=== PATIENT | male | born 1980 | race Caucasian/White ===

== ENCOUNTER → 2017-12-04 | Outpatient (REF) | payer MEDICARE, OTHER ==
[2017-12-04 14:10] LABS: APPEARANCE, URINE CLEAR (CLEAR); BACTERIA, URINE AUTO NEGATIVE (NEGATIVE); BILIRUBIN, URINE AUTO NEGATIVE (NEGATIVE); BLOOD, URINE BLOOD NEGATIVE (NEGATIVE); COLOR, URINE STRAW (YELLOW); GLUCOSE, URINE (UA) AUTO NEGATIVE (NEGATIVE); KETONE, URINE AUTO NEGATIVE (NEGATIVE); LEUKOCYTE ESTERASE, URINE AUTO NEGATIVE (NEGATIVE); NITRITE, URINE AUTO NEGATIVE (NEGATIVE); PROTEIN, URINE AUTO NEGATIVE (NEGATIVE); RBC, URINE AUTO 0 /HPF (0-3); SPECIFIC GRAVITY URINE AUTO 1.005 (1.002-1.035); SQUAMOUS EPITHELIAL CELL UR AU 0 /HPF (0-6); UROBILINOGEN, URINE AUTO 0.2 mg/dL (0.0-2.0); WBC, URINE AUTO 1 /HPF (0-3)
== END ==
LOC: M SMT 13:13
DX: R30.0 Dysuria (principal)
CPT/HCPCS: 81001

== ENCOUNTER 2019-02-13 11:51 | Day surgery (SDC) | payer MEDICARE, OTHER ==
[~2019-02-13] VITALS: Ht 167.6 cm; Wt 89.4 kg
[~2019-02-13 11:51] MED LIST: /BUSP5TA OR; ABIL2TAB OR; AMBI10TA OR; BUSP15TA PO; CETI10TA PO; CLOB0.0526 TOP; DIVA250T67 PO; DULO1CAP5 PO; EFFE150C OR; ENEMENE8 PR; ISOPTO HOMATROPINE OU; KLON0.5T PO; LAMI1TAB7 OR; LORA1TAB12 PO; MINI5CAP OR; NS 1,000 ML IV ONE; PEGPOW PO; PROC5TA PO; ROSU40TA4 PO; SERO200T OR; SINUPOW7; TIZA4CAP PO; TRAZ100T OR; TRIA0.2571 PO; VENL75TA2 OR; VENTAER INH; VIGAMOX OU; VITA100T98 PO; [UNRECOGNIZED DRUG - OTHER]; saphris SL
[2019-02-13] MEDS ORDERED: PROPOFOL 200 MG/20 ML VIAL As Ordered ONE (12:45)
[2019-02-13] MEDS ORDERED: LIDOCAINE 2% INJ 100 MG/5 ML SDV (FOR ANES.) As Ordered ONE (12:46)
[2019-02-13] MEDS ORDERED: fentaNYL 100 MCG/2 ML INJECTION (J3010) As Ordered ONE (12:47)
--- NOTE | 2019-02-13 13:43 | ROOR ---
Patient Name: Sammy Fernandez Procedure Date: 02/13/2019 1:29 PM Date of : 1980 Age: 38 Room: [facility] Gender: Male Note Status: Finalized Procedure: Upper GI endoscopy Indications: Heartburn, Nausea Providers: Siddharth WINKLER MD Referring MD: Linda Malloy MD Requesting Provider: Medicines: Monitored Anesthesia Care Complications: No immediate complications. Procedure: Pre-Anesthesia Assessment: - The heart rate, respiratory rate, oxygen saturations, blood pressure, adequacy of pulmonary ventilation, and response to care were monitored throughout the procedure. The Endoscope was introduced through the mouth, and advanced to the second part of duodenum. The upper GI endoscopy was accomplished without difficulty. The patient tolerated the procedure well. Findings: The esophagus was normal. The stomach was normal. The examined duodenum was normal. Impression: - Normal esophagus. - Normal stomach. - Normal examined duodenum. - No specimens collected. Recommendation: - Continue present medications. - Observe patient's clinical course. Siddharth Winkler MD Siddharth WINKLER MD 02/13/2019 1:42:34 PM Electronically signed by Siddharth WINKLER MD Number of Addenda: 0 Note Initiated On: 02/13/2019 1:29 PM Estimated Blood Loss: Estimated blood loss: none.
--- NOTE | 2019-02-13 14:00 | ROOR ---
Patient Name: Sammy Fernandez Procedure Date: 02/13/2019 1:30 PM Date of : 1980 Age: 38 Room: [facility] Gender: Male Note Status: Finalized Procedure: Colonoscopy Indications: Generalized abdominal pain, Irritable bowel syndrome with constipation Providers: Siddharth WINKLER MD Referring MD: Linda Malloy MD Requesting Provider: Medicines: Monitored Anesthesia Care Complications: No immediate complications. Procedure: Pre-Anesthesia Assessment: - The heart rate, respiratory rate, oxygen saturations, blood pressure, adequacy of pulmonary ventilation, and response to care were monitored throughout the procedure. The Colonoscope was introduced through the anus and advanced to the terminal ileum, with identification of the appendiceal orifice and IC valve. The colonoscopy was performed without difficulty. The patient tolerated the procedure well. The quality of the bowel preparation was good. Findings: The perianal and digital rectal examinations were normal. Three sessile polyps were found in the sigmoid colon. The polyps were 4 to 5 mm in size. These polyps were removed with a cold snare. Resection and retrieval were complete. The exam was otherwise without abnormality on direct and retroflexion views. The terminal ileum appeared normal. Small Internal Hemorrhoids. Impression: - Three 4 to 5 mm polyps in the sigmoid colon, removed with a cold snare. Resected and retrieved. - The colon examination was otherwise normal on direct and retroflexion views. - The examined portion of the ileum was normal. - Small Internal Hemorrhoids. - (Irritable Bowel Syndrome/IBS-C suspected.) Recommendation: - Continue present medications. - Repeat colonoscopy in 3 years for surveillance. - Continue Miralax. you can divide the dose into 2 or 3 doses a day if you want. If this does not work, then consideration may be given to retrial on Linzess or trulance. Siddharth Winkler MD Siddharth WINKLER MD 02/13/2019 2:00:08 PM Electronically signed by Siddharth WINKLER MD Number of Addenda: 0 Note Initiated On: 02/13/2019 1:30 PM Estimated Blood Loss: Estimated blood loss: none.
[2019-02-13 14:40] VITALS: BP 113/67
== END 2019-02-13 14:35 | disposition home or self-care (01) ==
LOC: M OPP 11:51
PROVIDERS: ATTEND Internal Medicine Gastroenterology
DX: D12.5 Benign neoplasm of sigmoid colon (principal); K64.8 Other hemorrhoids; R10.84 Generalized abdominal pain; K58.1 Irritable bowel syndrome with constipation; R12 Heartburn; R11.0 Nausea; K21.9 Gastro-esophageal reflux disease without esophagitis; M32.9 Systemic lupus erythematosus, unspecified; Z79.899 Other long term (current) drug therapy; Z88.1 Allergy status to other antibiotic agents; Z88.8 Allergy status to other drugs, medicaments and biological substances
CPT/HCPCS: 43235; 45385; 88305; J3010

== ENCOUNTER → 2019-11-17 | Outpatient (REF) | payer MEDICARE, OTHER ==
[~2019-11-17] MED LIST changes: -LORA1TAB12 PO; +LORA1TAB4 PO; -NS 1,000 ML IV ONE; -PROC5TA PO; +PROC5TAB57 PO
== END ==
LOC: M LAB REF 11:32
PROVIDERS: ATTEND Physician Assistant Medical
DX: R19.7 Diarrhea, unspecified (principal)

== ENCOUNTER → 2019-12-09 | Outpatient (CLI) | payer MEDICARE, OTHER ==
--- NOTE | 2020-01-04 10:57 | REP ---
NUCLEAR GASTRIC EMPTYING SCAN HISTORY: Nausea, vomiting, and epigastric pain. FINDINGS: Following the oral administration of 1.05 mCi Technetium-99m sulfur colloid and two scrambled eggs and 6 ounces of water, multiple images of the upper abdomen are performed in the anterior and posterior projections for 90 minutes. Gastric activity is measured. At the end of 90 minutes, 98% of the ingested activity has emptied from the stomach. T1/2 is calculated to be 45 minutes. IMPRESSION: Normal gastric emptying time. MTDD
== END ==
LOC: M RAD 06:51
PROVIDERS: ATTEND Physician Assistant Medical
DX: R11.2 Nausea with vomiting, unspecified (principal); R10.13 Epigastric pain; R19.7 Diarrhea, unspecified
CPT/HCPCS: 76705; 78264; A9541

== ENCOUNTER → 2020-03-10 | Outpatient (CLI) | payer MEDICARE, OTHER ==
[~2020-03-10] MED LIST changes: +BRIN10TA4 PO; +DIAZ5TAB PO; +GLYCERIN; +PANT20TA6; +TAP WATER ENEMA; +VITA50005 PO
== END ==
LOC: M LABSMTC 09:47
PROVIDERS: ATTEND Anesthesiology
DX: Z01.812 Encounter for preprocedural laboratory examination (principal); Z20.828 Contact with and (suspected) exposure to other viral communicable diseases

== ENCOUNTER 2020-03-15 10:50 | Day surgery (SDC) | payer MEDICARE, OTHER ==
[~2020-03-15] VITALS: Ht 167.6 cm; Wt 94.3 kg
[~2020-03-15 10:50] MED LIST changes: +NS 1,000 ML IV ONE
[2020-03-15] MEDS ORDERED: propofoL 200 MG/20 ML VIAL As Ordered ONE (11:58)
[2020-03-15] MEDS ORDERED: LIDOCAINE 2% 100MG/5ML SDV (FOR ANES.) As Ordered ONE (11:58)
--- NOTE | 2020-03-15 13:23 | ROOR ---
Patient Name: Sammy Fernandez Procedure Date: 03/15/2020 1:06 PM Date of : 1980 Age: 39 Room: [facility] Gender: Male Note Status: Finalized Procedure: Upper GI endoscopy Indications: Indigestion, Failure to respond to medical treatment, Nausea with vomiting Providers: Siddharth WINKLER MD Referring MD: Linda Malloy MD Requesting Provider: Medicines: Monitored Anesthesia Care Complications: No immediate complications. Procedure: Pre-Anesthesia Assessment: - The heart rate, respiratory rate, oxygen saturations, blood pressure, adequacy of pulmonary ventilation, and response to care were monitored throughout the procedure. The Endoscope was introduced through the mouth, and advanced to the second part of duodenum. The upper GI endoscopy was accomplished without difficulty. The patient tolerated the procedure well. Findings: The esophagus was normal. The stomach was normal. The examined duodenum was normal. Biopsies were taken with a cold forceps in the stomach for Helicobacter pylori testing. Impression: - Normal esophagus. - Normal stomach. - Normal examined duodenum. - Biopsies were taken with a cold forceps for Helicobacter pylori testing. Recommendation: - Telephone endoscopist for pathology results in 2 weeks. - Cannabinoid Hyperemesis possible. Rec you discontinue/reduce cannabis dose. - Observe patient's clinical course. Procedure Code(s): --- Professional --- 56201, Esophagogastroduodenoscopy, flexible, transoral; with biopsy, single or multiple Diagnosis Code(s): --- Professional --- K30, Functional dyspepsia R11.2, Nausea with vomiting, unspecified CPT copyright 2019 [employer]. All rights reserved. The codes documented in this report are preliminary and upon telemedicine physician review may be revised to meet current compliance requirements. Siddharth Winkler MD Siddharth WINKLER MD 03/15/2020 1:22:42 PM Electronically signed by Siddharth WINKLER MD Number of Addenda: 0 Note Initiated On: 03/15/2020 1:06 PM Estimated Blood Loss: Estimated blood loss: none.
[2020-03-15 13:43] VITALS: BP 148/95
== END 2020-03-15 13:52 | disposition home or self-care (01) ==
LOC: M OPP 10:50
PROVIDERS: ATTEND Internal Medicine Gastroenterology
DX: K30 Functional dyspepsia (principal); R11.2 Nausea with vomiting, unspecified; M32.8 Other forms of systemic lupus erythematosus; F17.210 Nicotine dependence, cigarettes, uncomplicated; Z79.899 Other long term (current) drug therapy; Z88.1 Allergy status to other antibiotic agents; Z88.8 Allergy status to other drugs, medicaments and biological substances

== ENCOUNTER → 2021-11-23 | Outpatient (CLI) | payer MEDICARE, OTHER ==
[~2021-11-23] VITALS: Ht 167.6 cm; Wt 86.7 kg
[~2021-11-23] MED LIST changes: +ERGO500029 PO; -NS 1,000 ML IV ONE; -PEGPOW PO; +POLY510P14 PO; -VITA50005 PO
[2021-11-23 14:05] VITALS: BP 133/86
== END ==
LOC: M PAL 13:23
PROVIDERS: ATTEND Nurse Practitioner Adult Health
DX: G43.909 Migraine, unspecified, not intractable, without status migrainosus (principal); F43.10 Post-traumatic stress disorder, unspecified; M54.2 Cervicalgia; M54.50 Low back pain, unspecified; M47.26 Other spondylosis with radiculopathy, lumbar region; Z88.1 Allergy status to other antibiotic agents; Z88.8 Allergy status to other drugs, medicaments and biological substances; Z79.899 Other long term (current) drug therapy; Z79.51 Long term (current) use of inhaled steroids; G89.29 Other chronic pain; Z63.5 Disruption of family by separation and divorce